=== PATIENT | male | born 1965 | race Two or more races ===

== ENCOUNTER 2021-06-12 21:40 | Emergency (ER) | payer BC, OTHER ==
[~2021-06-12] VITALS: Ht 172.7 cm; Wt 100.0 kg
[~2021-06-12 21:40] MED LIST: AMLO-211 PO; ASPI-963 PO; ATOR40TA78 PO; CARV12.543 PO; LISI30TA4 PO; MELO15TA24 PO; NEBI10TA3 PO
[2021-06-12] MEDS ORDERED: ASPIRIN 325 MG TABLET PO STA (21:47)
--- NOTE | 2021-06-12 21:57 | NUR ---
Code Cardiac called @ 2145 Called Cardiology @ 2147 Cardiology called back @ 2155 Dr. Morataya called back.
[2021-06-12] MEDS ORDERED: ASPIRIN 325 MG TABLET ONE (21:59)
[2021-06-12] MEDS ORDERED: ONDANSETRON 2MG/ML, 2ML ONE (21:59)
--- NOTE | 2021-06-12 22:04 | NUR ---
PT ARRIVED TO TR2 ROOM, VIA EMS, FOR C/C OF SYNCOPE EPISODE, AND PT BECAME INCONTINENT. PT PLACED ON CR MONITOR, AND STATE EKG DONE, AND IT APPEARS PT IS HAVING A STEMI. MD AWARE AND CODE CARDIAC CALLED, SEE EARLIER NOTES FOR TIMES. PT PREPPED FOR CHEMICAL MANAGER, AND AIRPLANE NAVIGATOR TO BEDSIDE TO ASSIST WITH SET UP. PT HAS TRANSLUSCENT DEFIB PADS, AND PIV TO LEFT HAND 18G, AND 2ND PIV STARTED TO RIGHT FOREARM. IV FLUIDS WITH EXTENSION TUBING AT BEDSIDE. PT PREPPED WITH SHAVING TO RIGHT GROIN, ALL CLOTHING OFF AND SECURED IN BAG WITH PTS BELONGINGS, TIME OF CC ON RIGHT FOOT. CHECKLIST COMPLETE, AND MEDS GIVEN, AND WAITING FOR CHEMICAL MANAGER TO CALL WHEN THEY ARE READY.
[2021-06-12 22:06] LABS: BASOPHILS % (AUTO) 1 % (0-1); EOSINOPHILS % (AUTO) 4 % (1-7); LYMPHOCYTES % (AUTO) 35 % (22-44); MEAN CORPUSCULAR HEMOGLOBIN 28.9 pg (27.5-34.5); MEAN CORPUSCULAR HGB CONC 33.2 g/dL (33.2-36.2); MEAN PLATELET VOLUME 9.5 fL (7.4-10.4); MONOCYTES % (AUTO) 11 % (2-9); NEUTROPHILS % (AUTO) 49 % (42-75); PLATELET COUNT 204 x10^3/uL (130-400); RED CELL DISTRIBUTION WIDTH 13.6 % (9.4-14.8)
[2021-06-12 22:16] LABS: INTERNATIONAL NORMALIZED RATIO 0.97 (0.93-1.1); PROTHROMBIN TIME 10.4 Seconds (9.6-11.5)
[2021-06-12] MEDS ORDERED: HEPARIN 25,000 UNITS/250ML PMX 250 ML ONE (22:17)
[2021-06-12] MEDS ORDERED: HEPARIN 5,000 UNITS/ML, 1ML ONE (22:17)
[2021-06-12] MEDS ORDERED: HEPARIN 5,000 UNITS/ML, 1ML IV PRN (22:30)
[2021-06-12] MEDS ORDERED: HEPARIN 5,000 UNITS/ML, 1ML IV ONE (22:30)
[2021-06-12] MEDS ORDERED: HEPARIN 25,000 UNITS/250ML PMX 250 ML IV PRN (22:30)
[2021-06-12] MEDS ORDERED: TICAGRELOR 90 MG TABLET ONE (22:38)
[2021-06-12] MEDS ORDERED: LIDOCAINE 2%, 20ML ONE (22:38)
[2021-06-12] MEDS ORDERED: MIDAZOLAM 1 MG/ML, 5ML ONE (22:38)
[2021-06-12] MEDS ORDERED: FENTANYL PF 100 MCG/2ML ONE (22:38)
[2021-06-12] MEDS ORDERED: BIVALIRUDIN 250 MG ONE (22:38)
[2021-06-12] MEDS ORDERED: HEPARIN 1,000 UNITS/ML, 10ML ONE (22:38)
[2021-06-12] MEDS ORDERED: VERAPAMIL 2.5 MG/ML, 2ML ONE (22:38)
--- NOTE | 2021-06-12 23:15 | NUR ---
PT A&OX4, RESTING COMFORTABLY, ON CR MONITOR. PTS IS IN THE ROOM, PERMITTED BY THE MD IN CHARGE, THE PT IS COVID POSITIVE, AND THE WAS TOLD THAT DUE TO PRECAUTIONS SHE WOULDN'T BE ABLE TO COME TO THE ROOM. THE THREW A FIT SAYING SHE DOESN'T CARE, AND THE MD SPOKE WITH HER AND THE MD LET HER IN THE ROOM. CHARGE NURSE NOTIFIED.
[2021-06-12] MEDS ORDERED: BISACODYL 5 MG EC TABLET PO PRN (23:30)
[2021-06-12] MEDS ORDERED: morphine SULFATE 10 MG/ML, 1ML IV PRN (23:30)
[2021-06-12] MEDS ORDERED: ACETAMINOPHEN 325 MG TABLET PO PRN (23:30)
[2021-06-12] MEDS ORDERED: morphine SULFATE 10 MG/ML, 1ML IVPush PRN (23:30)
[2021-06-12] MEDS ORDERED: NITROGLYCERIN 0.4 MG BOTTLE (25 TABS) SL PRN (23:30)
[2021-06-12] MEDS ORDERED: ONDANSETRON 2MG/ML, 2ML IV PRN (23:30)
[2021-06-12] MEDS ORDERED: BISACODYL 10 MG SUPP PR PRN (23:30)
[2021-06-12] MEDS ORDERED: SODIUM CHLORIDE FLUSH 10ML SYR IVF SCH (23:30)
[2021-06-12] MEDS ORDERED: NITROGLYCERIN 0.4 MG/SPRAY SL PRN (23:30)
[2021-06-12] MEDS ORDERED: OXYcodone IR 5MG TABLET PO PRN (23:30)
--- NOTE | 2021-06-13 00:22 | NUR ---
NO CHANGE IN STATUS. PT RESTING COMFORTABLY, NO ACUTE DISTRESS, AND PT REMAINS ON CR MONITOR. AT BEDSIDE.
--- NOTE | 2021-06-13 01:17 | NUR ---
NO CHANGE IN PT STATUS. PT SLEEPING AT THIS TIME, RESTING COMFORTABLY, NO COMPLAINTS OF ANY CHEST PAIN OR DEFICITS.
--- NOTE | 2021-06-13 02:02 | NUR ---
PT SLEEPING, NO ACUTE DISTRESS AT THIS TIME. PT REMAINS ON CR MONITOR.
[2021-06-13 02:25] LABS: MEAN CORPUSCULAR HEMOGLOBIN 29.1 pg (27.5-34.5); MEAN CORPUSCULAR HGB CONC 33.7 g/dL (33.2-36.2); MEAN PLATELET VOLUME 9.1 fL (7.4-10.4); PLATELET COUNT 194 x10^3/uL (130-400); RED BLOOD COUNT 4.59 x10^6/uL (4.38-5.82); RED CELL DISTRIBUTION WIDTH 13.5 % (9.4-14.8)
[2021-06-13 02:34] LABS: ANION GAP 5 mmol/L (5-15); CALCIUM 9.1 mg/dL (8.5-10.1); CHLORIDE 107 mmol/L (98-107); CREATININE 1.14 mg/dL (0.7-1.3)
[2021-06-13 02:40] LABS: TROPONIN I 0.456 ng/mL (0.000-0.045)
--- NOTE | 2021-06-13 03:34 | NUR ---
PT SLEEPING, AND HOSPITAL CCU BED ORDERED AND PT TRANSFERRED INTO THAT BED. PTS REMAINS AT BEDSIDE AND PT AND HIS UPDATED TO CARE AND PROCESS.
--- NOTE | 2021-06-13 04:58 | NUR ---
PT SLEEPING AND IN NO ACUTE DISTRESS. REMAINS ON CR MONITOR, AND PIV X2 INTACT, SOFT AND FLAT, AND HEPARIN DRIP INLINE AND INFUSING WITHOUT ISSUE.
[2021-06-13] MEDS ORDERED: ASPIRIN 81 MG TABLET CHEW PO SCH (06:00)
[2021-06-13] MEDS ORDERED: ASPIRIN 81 MG TABLET CHEW ONE (06:27)
--- NOTE | 2021-06-13 07:00 | NUR ---
report from Juan. at bedside, she has been encouraged no visiting prior to my arrival for C19 positive. Patient in bed, rails up, vss.
[2021-06-13] MEDS ORDERED: CARVEDILOL 12.5 MG TABLET ONE (08:11)
[2021-06-13] MEDS ORDERED: AMLODIPINE 10 MG TAB ONE (08:11)
[2021-06-13] MEDS ORDERED: LISINOPRIL 10 MG TABLET ONE (08:11)
--- NOTE | 2021-06-13 08:39 | NUR ---
PATIENT MOVED SAFELY TO HOSPITAL BED.
[2021-06-13] MEDS ORDERED: CARVEDILOL 12.5 MG TABLET PO SCH (09:00)
[2021-06-13] MEDS ORDERED: LISINOPRIL 10 MG TABLET PO SCH (09:00)
[2021-06-13] MEDS ORDERED: AMLODIPINE 10 MG TAB PO SCH (09:00)
--- NOTE | 2021-06-13 09:08 | NUR ---
got patient food cardiac diet.
--- NOTE | 2021-06-13 09:35 | NUR ---
patient ate half breakfast. no signs of distress, calm resting
--- NOTE | 2021-06-13 10:42 | NUR ---
patient resting quietly. no s/s distress
--- NOTE | 2021-06-13 11:36 | NUR ---
ordered lunch tray. patietn resting quietly
--- NOTE | 2021-06-13 12:27 | NUR ---
PATIENT BROUGHT CARDIAC LUNCH TRAY. HE IS IN BED RESTING QUIETLY. NO COMPLAINTS.
--- NOTE | 2021-06-13 13:34 | NUR ---
PATIENT ATE HALF OF LUNCH TRAY. PATIENT CALM.
--- NOTE | 2021-06-13 14:10 | NUR ---
patient voided 550 out. no compaints. calm
[2021-06-13] MEDS ORDERED: DEXA4TAB66 PO (15:37)
--- NOTE | 2021-06-13 15:44 | NUR ---
DR TOBIAS STOPPED BY AND PATIENT OK TO DISCHARGE TO HOME. PATIENT CALM, DENIES PAIN. FEELING IMPROVED.
[2021-06-13 15:45] VITALS: BP 122/75
--- NOTE | 2021-06-13 16:05 | NUR ---
CALLED TELE TO HELP WITH DISCHARGE, THEY WILL PRINT DISCHARGE FORMS. CALLED DISCHARGE LOUNGE AND NO EDUCATION SO THEY ARE UNABLE. THEY WILL COME WITH DC PAPERWORK KAM. ON WAY. HELPED PATIENT TO GET HIS THINGS, FEELING IMPROVED.
--- NOTE | 2021-06-13 17:28 | NUR ---
GOT DISCHARGE PAPERWORK AND EDUCATION FOR PATIENT, AND HIS RIDE HOME ARRIVED. DISCHARGE INCLUDES CARDIAC CARE, ISOLATION CARE, RESPIRATORY CARE. PICKED UP. REVIEWED DC/SHOWS UNDERSTANDING
[2021-06-13] MEDS ORDERED: ATORVASTATIN 40 MG TABLET PO SCH (21:00)
== END 2021-06-13 18:07 | disposition home or self-care (01) ==
LOC: ED 21:45 → UNDOADMIN 23:06 → EDIP 23:06 → ED 06-13 18:07
DX: U07.1 COVID-19 (principal); I21.4 Non-ST elevation (NSTEMI) myocardial infarction; R55 Syncope and collapse; R11.2 Nausea with vomiting, unspecified; I10 Essential (primary) hypertension; F17.200 Nicotine dependence, unspecified, uncomplicated
CPT/HCPCS: 36415; 71045; 80047; 80048; 84484; 85025; 85027; 85520; 85610; 85730; 87635; 93005; 96374; 99291; J1644; J3490; 99285; J0583; J2250; J3010